=== PATIENT | male | born 1950 | race Two or more races ===

== ENCOUNTER → 2021-04-26 07:24 | Outpatient (CLI) | payer OTHER | END | disposition home or self-care (01) | LOC: NUCLEAR 07:00 | PROVIDERS: ATTEND Internal Medicine Cardiovascular Disease | DX: I25.10 Atherosclerotic heart disease of native coronary artery without angina pectoris (principal); I25.6 Silent myocardial ischemia | CPT/HCPCS: 78452; 93017; A9500 ==

== ENCOUNTER 2025-06-13 11:43 | Outpatient (CLI) | payer OTHER | END 2025-06-13 11:46 | disposition home or self-care (01) | LOC: LAB 11:43 | PROVIDERS: ATTEND Urology | DX: R97.20 Elevated prostate specific antigen [PSA] (principal) ==